=== PATIENT | female | born 1985 | race Caucasian/White ===

== ENCOUNTER → 2016-04-13 | Outpatient (CLI) | payer OTHER ==
[~2016-04-13] MED LIST: CLARITIN10 MG PO; COLACE 100MG C100 MG PO; FLONASE 0.05% N16 GM; K-SOL40 MEQ/15 PO; PROTONIX40 MG PO; TRILEPTAL600 MG PO; VALTREX500 MG PO; VIMPAT150 MG PO; VITAMIN D50000 UNIT PO; XALATAN2.5 ML OP; ZYRTEC10 MG PO
[2016-04-13 09:36] LABS: BUN/CREATININE RATIO 12 (0-10)
== END ==
LOC: LAB 08:30
PROVIDERS: Nurse Practitioner Primary Care
DX: E87.6 Hypokalemia (principal)
CPT/HCPCS: 36415; 80048

== ENCOUNTER → 2016-04-28 | Outpatient (CLI) | payer OTHER ==
[2016-04-28 11:35] LABS: HEMOGLOBIN 10.9 gm/dl (12.3-15.3); RED BLOOD COUNT 4.53 M/UL (4.00-5.10); WHITE BLOOD COUNT 14.8 K/UL (4.5-11.0)
[2016-04-28 11:45] LABS: BUN/CREATININE RATIO 28 (0-10)
== END ==
LOC: LAB 10:19
PROVIDERS: Nurse Practitioner Primary Care
DX: R05 Cough (principal); J40 Bronchitis, not specified as acute or chronic
CPT/HCPCS: 36415; 71010; 80053; 85025

== ENCOUNTER → 2016-05-07 | Outpatient (CLI) | payer OTHER ==
[2016-05-07 10:55] LABS: HEMOGLOBIN 9.9 gm/dl (12.3-15.3); RED BLOOD COUNT 4.08 M/UL (4.00-5.10)
== END ==
LOC: LAB 09:58
PROVIDERS: Nurse Practitioner Primary Care
DX: D64.9 Anemia, unspecified (principal)
CPT/HCPCS: 36415; 82607; 82728; 82746; 83540; 83550; 85025

== ENCOUNTER → 2016-06-10 | Outpatient (CLI) | payer OTHER ==
[2016-06-10 10:45] LABS: HEMOGLOBIN 12.4 gm/dl (12.3-15.3); RED BLOOD COUNT 4.77 M/UL (4.00-5.10); WHITE BLOOD COUNT 5.5 K/UL (4.5-11.0)
== END ==
LOC: LAB 10:20
PROVIDERS: Internal Medicine Hematology & Oncology
DX: D64.9 Anemia, unspecified (principal)
CPT/HCPCS: 36415; 85025

== ENCOUNTER → 2016-07-16 | Outpatient (CLI) | payer OTHER ==
[2016-07-16 10:14] LABS: HEMOGLOBIN 14.9 gm/dl (12.3-15.3); RED BLOOD COUNT 5.26 M/UL (4.00-5.10); WHITE BLOOD COUNT 6.5 K/UL (4.5-11.0)
[2016-07-16 10:32] LABS: BUN/CREATININE RATIO 13 (0-10)
== END ==
LOC: LAB 09:32
PROVIDERS: Nurse Practitioner Primary Care
DX: D50.9 Iron deficiency anemia, unspecified (principal); E87.6 Hypokalemia
CPT/HCPCS: 36415; 80053; 85025

== ENCOUNTER → 2016-07-29 | Outpatient (CLI) | payer OTHER ==
[2016-07-29 11:39] LABS: HEMOGLOBIN 13.5 gm/dl (12.3-15.3); RED BLOOD COUNT 4.67 M/UL (4.00-5.10); WHITE BLOOD COUNT 9.4 K/UL (4.5-11.0)
[2016-07-29 12:01] LABS: BUN/CREATININE RATIO 10 (0-10)
== END ==
LOC: LAB 11:16
PROVIDERS: Surgery
DX: G40.211 Localization-related (focal) (partial) symptomatic epilepsy and epileptic syndromes with complex partial seizures, intractable, with status epilepticus (principal)
CPT/HCPCS: 36415; 80048; 85027

== ENCOUNTER → 2020-02-12 | Day surgery (SDC) | payer OTHER ==
[~2020-02-12] MED LIST changes: +ALL DAY ALLERGY10 MG PO; +APTIOM600 MG PO; +ASTELIN SPRAY; +AUGMENTIN 875-1 EACH PEG; +AUGMENTIN 875-1 EACH PO; +AZELASTINE137 MCG/0.; +BETAMETHASONE; +CALMOSEPTINE OI71 GM TOP; +CALMOSEPTINE OI71 GM TP; +CEFUROXIME500 MG PO; +CEPHALEXIN500 M1 PO; +CHILDREN'S15 MG/1 M1 PO; +CLOBAZAM PO; +CLOBAZAM2.5 MG/1 M GT; +COLACE PO; +COLACE SOL100 MG/10 PO; +COSOPT EYE DROP10 ML EYEBOTH; +COSOPT OPTH SOL10 ML EYEBOTH; +COSOPT PF EYE1 EACH EYEBOTH; +DEBROX15 ML AU; +DEBROX15 ML EARBOTH; +DEPO-PROVE150 MG/11 IM; +DIASTAT 2.5 MG2.5 MG PR; +DOCU LIQUI50 MG/5 ML PO; +DOXYCYCLINE HY100 MG PO; +DULCOLAX10 MG PR; +EAR DROPS15 ML EARBOTH; +ENSURE ORIGINA237 ML PO; +FERROUS SU220 MG/5 M PO; +FERROUS SU300 MG/5 M PEG; +FERROUS SULFATE PO; +HYDROCORTISONE TP; +JEVITY 1.5 PEG; +K-DUR TAB 10 M10 MEQ PO; +KEFLEX SUS250 MG/5 M PO; +MEDROXYPRO150 MG/1 M IM; +METRO; +MIRALAX17 GM PO; +POTASSIUM20 MEQ/15 PO; +TAMIFLU75 MG PO; +TOPIRAMATE ER200 MG PO; +TOPIRAMATE200 MG PO; +TRIAMCINOLONE; +TROKENDI XR200 MG PO; +TYLENOL325 MG PEG; +VIMPAT PO; +VIMPAT10 MG/1 ML GT; +VITAMIN D21250 MCG PO; +VITAMIN D31250 MCG PO; +XALATAN2.5 ML EYEBOTH; +XALATAN2.5 ML OU; +ZOFRAN ODT 4 MG4 MG PO; +ZOFRAN4 MG PO; +ZYRTEC10 M3 PO; +[UNRECOGNIZED DRUG - OTHER]; +[UNRECOGNIZED DRUG - OTHER] PO
== END | disposition home or self-care (01) ==
LOC: OR 07:59
PROVIDERS: Internal Medicine Gastroenterology
PROC: 0DH63UZ Insertion of Feeding Device into Stomach, Percutaneous Approach (ICD-10-PCS; principal; 2020-02-12 10:15)
DX: K94.23 Gastrostomy malfunction (principal); R63.3 Feeding difficulties; F72 Severe intellectual disabilities; K21.00 Gastro-esophageal reflux disease with esophagitis, without bleeding; K22.10 Ulcer of esophagus without bleeding; H40.9 Unspecified glaucoma; E87.6 Hypokalemia; G40.909 Epilepsy, unspecified, not intractable, without status epilepticus; Z79.899 Other long term (current) drug therapy; Z20.828 Contact with and (suspected) exposure to other viral communicable diseases
CPT/HCPCS: 36415; 84703; J2704; J7040

== ENCOUNTER → 2020-04-02 | Outpatient (CLI) | payer OTHER ==
[2020-04-02 09:19] LABS: HEMOGLOBIN 14.3 gm/dl (12.3-15.3); RED BLOOD COUNT 4.47 M/UL (4.00-5.10); WHITE BLOOD COUNT 5.3 K/UL (4.5-11.0)
[2020-04-02 09:51] LABS: BUN/CREATININE RATIO 18 (0-10)
[2020-04-03 09:13] LABS: VITAMIN D, 25-HYDROXY 22.4 ng/mL (30.0-100.0)
== END ==
LOC: LAB 08:43
PROVIDERS: Nurse Practitioner Primary Care
DX: D50.9 Iron deficiency anemia, unspecified (principal); R63.6 Underweight; E55.9 Vitamin D deficiency, unspecified; E87.6 Hypokalemia; M81.0 Age-related osteoporosis without current pathological fracture; G40.909 Epilepsy, unspecified, not intractable, without status epilepticus
CPT/HCPCS: 36415; 80053; 82728; 83735; 84443; 85025; G0480

== ENCOUNTER 2020-05-09 21:08 | Emergency (ER) | payer OTHER ==
[~2020-05-09 21:08] MED LIST changes: -APTIOM600 MG PO; -AUGMENTIN 875-1 EACH PEG; -AUGMENTIN 875-1 EACH PO; -CALMOSEPTINE OI71 GM TOP; -CLOBAZAM2.5 MG/1 M GT; -COSOPT OPTH SOL10 ML EYEBOTH; -DOCU LIQUI50 MG/5 ML PO; -DOXYCYCLINE HY100 MG PO; -EAR DROPS15 ML EARBOTH; -FERROUS SU300 MG/5 M PEG; -JEVITY 1.5 PEG; -MEDROXYPRO150 MG/1 M IM; -TYLENOL325 MG PEG; -VIMPAT10 MG/1 ML GT; -VITAMIN D21250 MCG PO; -[UNRECOGNIZED DRUG - OTHER] PO
[2020-05-09 23:28] LABS: RED BLOOD COUNT 4.08 M/UL (4.00-5.10)
[2020-05-09 23:55] LABS: BUN/CREATININE RATIO 43 (0-10)
[2020-06-26] MEDS ORDERED: MIRALAX17 GM PO (09:16)
[2020-07-02] MEDS ORDERED: DEBROX15 ML EARBOTH (08:52)
[2020-07-02] MEDS ORDERED: VITAMIN D21250 MCG PO (09:00)
[2020-07-04] MEDS ORDERED: APTIOM600 MG PO (09:11)
== END 2020-05-10 12:05 | disposition other institution (70) ==
LOC: ER1 21:08
PROVIDERS: Emergency Medicine
DX: A41.9 Sepsis, unspecified organism (principal); R65.20 Severe sepsis without septic shock; J18.9 Pneumonia, unspecified organism; G40.901 Epilepsy, unspecified, not intractable, with status epilepticus; Z20.822 Contact with and (suspected) exposure to COVID-19
CPT/HCPCS: 0240U; 36415; 36600; 70450; 71045; 80053; 81001; 82803; 83605; 83690; 83735; 84703; 85025; 87040; 93005; 94760; 96365; 96366; 96368; 96375; 99285; J0456; J2060; J2543; J7030

== ENCOUNTER → 2020-06-05 | Outpatient (CLI) | payer OTHER ==
[~2020-06-05] MED LIST changes: +APTIOM600 MG PO; +AUGMENTIN 875-1 EACH PEG; +AUGMENTIN 875-1 EACH PO; +CALMOSEPTINE OI71 GM TOP; +CLOBAZAM2.5 MG/1 M GT; +COSOPT OPTH SOL10 ML EYEBOTH; +DOCU LIQUI50 MG/5 ML PO; +DOXYCYCLINE HY100 MG PO; +EAR DROPS15 ML EARBOTH; +FERROUS SU300 MG/5 M PEG; +JEVITY 1.5 PEG; +MEDROXYPRO150 MG/1 M IM; +TYLENOL325 MG PEG; +VIMPAT10 MG/1 ML GT; +VITAMIN D21250 MCG PO; +[UNRECOGNIZED DRUG - OTHER] PO
== END ==
LOC: RAD 09:20
DX: D50.9 Iron deficiency anemia, unspecified (principal); E55.9 Vitamin D deficiency, unspecified; K29.70 Gastritis, unspecified, without bleeding; R13.10 Dysphagia, unspecified; R63.6 Underweight; G80.9 Cerebral palsy, unspecified; E87.6 Hypokalemia
CPT/HCPCS: 71045

== ENCOUNTER → 2020-06-13 | Outpatient (CLI) | payer OTHER ==
[2020-06-13 10:04] LABS: HEMOGLOBIN 12.9 gm/dl (12.3-15.3); RED BLOOD COUNT 4.18 M/UL (4.00-5.10); WHITE BLOOD COUNT 15.3 K/UL (4.5-11.0)
[2020-06-13 10:27] LABS: BUN/CREATININE RATIO 49 (0-10)
== END ==
LOC: LAB 09:20
PROVIDERS: Nurse Practitioner Primary Care
DX: G80.9 Cerebral palsy, unspecified (principal)
CPT/HCPCS: 36415; 80053; 85025

== ENCOUNTER 2020-06-16 13:00 | Emergency (ER) | payer OTHER ==
[~2020-06-16 13:00] MED LIST changes: -APTIOM600 MG PO; -AUGMENTIN 875-1 EACH PEG; -AUGMENTIN 875-1 EACH PO; -CALMOSEPTINE OI71 GM TOP; -CLOBAZAM2.5 MG/1 M GT; -COSOPT OPTH SOL10 ML EYEBOTH; -DOCU LIQUI50 MG/5 ML PO; -DOXYCYCLINE HY100 MG PO; -EAR DROPS15 ML EARBOTH; -FERROUS SU300 MG/5 M PEG; -JEVITY 1.5 PEG; -MEDROXYPRO150 MG/1 M IM; -TYLENOL325 MG PEG; -VIMPAT10 MG/1 ML GT; -VITAMIN D21250 MCG PO; -[UNRECOGNIZED DRUG - OTHER] PO
[2020-06-16 16:07] LABS: HEMOGLOBIN 13.5 gm/dl (12.3-15.3); RED BLOOD COUNT 4.36 M/UL (4.00-5.10); WHITE BLOOD COUNT 13.7 K/UL (4.5-11.0)
[2020-06-16 16:19] LABS: BUN/CREATININE RATIO 36 (0-10)
[2020-06-26] MEDS ORDERED: MIRALAX17 GM PO (09:16)
[2020-07-02] MEDS ORDERED: DEBROX15 ML EARBOTH (08:52)
[2020-07-02] MEDS ORDERED: VITAMIN D21250 MCG PO (09:00)
[2020-07-04] MEDS ORDERED: APTIOM600 MG PO (09:11)
== END 2020-06-16 19:04 | disposition home or self-care (01) ==
LOC: ER1 13:00
PROVIDERS: Emergency Medicine
DX: L03.113 Cellulitis of right upper limb (principal); G40.909 Epilepsy, unspecified, not intractable, without status epilepticus
CPT/HCPCS: 71045; 80053; 81001; 85025; 99285; Q9967

== ENCOUNTER → 2020-07-02 | Day surgery (SDC) | payer OTHER ==
[~2020-07-02] VITALS: Ht 147.3 cm; Wt 40.8 kg
[~2020-07-02] MED LIST changes: +APTIOM600 MG PO; +AUGMENTIN 875-1 EACH PEG; +AUGMENTIN 875-1 EACH PO; +CALMOSEPTINE OI71 GM TOP; +CLOBAZAM2.5 MG/1 M GT; +COSOPT OPTH SOL10 ML EYEBOTH; +DOCU LIQUI50 MG/5 ML PO; +DOXYCYCLINE HY100 MG PO; +EAR DROPS15 ML EARBOTH; +FERROUS SU300 MG/5 M PEG; +JEVITY 1.5 PEG; +MEDROXYPRO150 MG/1 M IM; +TYLENOL325 MG PEG; +VIMPAT10 MG/1 ML GT; +VITAMIN D21250 MCG PO; +[UNRECOGNIZED DRUG - OTHER] PO
== END | disposition home or self-care (01) ==
LOC: OR 06-30 09:17
DX: K94.23 Gastrostomy malfunction (principal); G40.909 Epilepsy, unspecified, not intractable, without status epilepticus; F72 Severe intellectual disabilities; K21.9 Gastro-esophageal reflux disease without esophagitis; Z79.899 Other long term (current) drug therapy; Z20.822 Contact with and (suspected) exposure to COVID-19
CPT/HCPCS: 36415; 84703; J2704; J7040; U0002

== ENCOUNTER 2020-07-17 14:03 | Inpatient (IN) | payer OTHER ==
[~2020-07-17] VITALS: Ht 149.9 cm; Wt 38.1 kg
[~2020-07-17 14:03] MED LIST changes: -AUGMENTIN 875-1 EACH PEG; -AUGMENTIN 875-1 EACH PO; -CALMOSEPTINE OI71 GM TOP; -CLOBAZAM2.5 MG/1 M GT; -COSOPT OPTH SOL10 ML EYEBOTH; -DOCU LIQUI50 MG/5 ML PO; -DOXYCYCLINE HY100 MG PO; -EAR DROPS15 ML EARBOTH; -FERROUS SU300 MG/5 M PEG; -JEVITY 1.5 PEG; -MEDROXYPRO150 MG/1 M IM; -TYLENOL325 MG PEG; -VIMPAT10 MG/1 ML GT; -[UNRECOGNIZED DRUG - OTHER] PO
[2020-07-17 15:42] LABS: HEMOGLOBIN 12.2 gm/dl (12.3-15.3); RED BLOOD COUNT 4.06 M/UL (4.00-5.10); WHITE BLOOD COUNT 18.4 K/UL (4.5-11.0)
[2020-07-17 16:02] LABS: BUN/CREATININE RATIO 35 (0-10)
[2020-07-18 08:59] LABS: RED BLOOD COUNT 4.04 M/UL (4.00-5.10)
[2020-07-18 09:05] LABS: WHITE BLOOD COUNT 11.1 K/UL (4.5-11.0)
[2020-07-18] MEDS ORDERED: CALMOSEPTINE OI71 GM TP (09:14)
[2020-07-18] MEDS ORDERED: JEVITY 1.5 PEG (09:20)
[2020-07-18 09:26] LABS: BUN/CREATININE RATIO 26 (0-10)
[2020-07-18] MEDS ORDERED: AZELASTINE137 MCG/0. (09:35)
[2020-07-18] MEDS ORDERED: COSOPT OPTH SOL10 ML EYEBOTH ×2 (09:35→10:11)
[2020-07-18] MEDS ORDERED: FERROUS SU300 MG/5 M PEG (09:37)
[2020-07-18] MEDS ORDERED: DOCU LIQUI50 MG/5 ML PO (09:40)
[2020-07-18] MEDS ORDERED: EAR DROPS15 ML EARBOTH (09:52)
[2020-07-18] MEDS ORDERED: VIMPAT10 MG/1 ML GT (09:53)
[2020-07-18] MEDS ORDERED: CLOBAZAM2.5 MG/1 M GT (09:58)
[2020-07-18] MEDS ORDERED: MEDROXYPRO150 MG/1 M IM (09:59)
[2020-07-18] MEDS ORDERED: TYLENOL325 MG PEG (10:14)
[2020-07-18] MEDS ORDERED: CALMOSEPTINE OI71 GM TOP (10:57)
[2020-07-18] MEDS ORDERED: [UNRECOGNIZED DRUG - OTHER] PO (20:32)
[2020-07-19 04:23] LABS: HEMOGLOBIN 10.9 gm/dl (12.3-15.3); RED BLOOD COUNT 3.74 M/UL (4.00-5.10)
[2020-07-19 04:24] LABS: WHITE BLOOD COUNT 6.5 K/UL (4.5-11.0)
[2020-07-19 04:46] LABS: BUN/CREATININE RATIO 21 (0-10)
--- NOTE | 2020-07-19 17:05 | NUR ---
NOTIFIED DR. WASSERMAN OF [facility] PER TELEMETRY. NO NEW ORDERS AT THIS TIME.
[2020-07-20 07:01] LABS: HEMOGLOBIN 11.2 gm/dl (12.3-15.3); RED BLOOD COUNT 3.82 M/UL (4.00-5.10); WHITE BLOOD COUNT 7.2 K/UL (4.5-11.0)
[2020-07-20 07:20] LABS: BUN/CREATININE RATIO 18 (0-10)
[2020-07-21 04:54] LABS: HEMOGLOBIN 11.3 gm/dl (12.3-15.3); RED BLOOD COUNT 3.91 M/UL (4.00-5.10); WHITE BLOOD COUNT 5.9 K/UL (4.5-11.0)
[2020-07-21 05:05] LABS: BUN/CREATININE RATIO 19 (0-10)
[2020-07-22 03:24] LABS: HEMOGLOBIN 12.3 gm/dl (12.3-15.3); RED BLOOD COUNT 4.27 M/UL (4.00-5.10); WHITE BLOOD COUNT 7.6 K/UL (4.5-11.0)
[2020-07-22 04:49] LABS: BUN/CREATININE RATIO 16 (0-10)
[2020-07-23 02:57] LABS: BUN/CREATININE RATIO 9 (0-10)
[2020-07-24 04:41] LABS: RED BLOOD COUNT 4.06 M/UL (4.00-5.10); WHITE BLOOD COUNT 7.4 K/UL (4.5-11.0)
[2020-07-24 05:02] LABS: BUN/CREATININE RATIO 14 (0-10)
--- NOTE | 2020-07-24 12:47 | NUR ---
PATIENT DIFFICULT LAB STICK (LAB TRIED MULTIPLE TIMES YESTERDAY BEFORE BECOMING SUCSESSFUL) . K+ 3.4. REPLACED WITH 40 meq AND PATIENT IS GETTING IV FLUIDS WITH k+. UNESSESARY RE DRAW. MERARY NOTIFY PROVIDER.
[2020-07-25 03:15] LABS: RED BLOOD COUNT 4.08 M/UL (4.00-5.10); WHITE BLOOD COUNT 7.3 K/UL (4.5-11.0)
[2020-07-25 03:32] LABS: BUN/CREATININE RATIO 22 (0-10)
[2020-07-26 05:29] LABS: BUN/CREATININE RATIO 22 (0-10)
[2020-07-27 05:51] LABS: HEMOGLOBIN 11.6 gm/dl (12.3-15.3); RED BLOOD COUNT 3.95 M/UL (4.00-5.10); WHITE BLOOD COUNT 6.4 K/UL (4.5-11.0)
[2020-07-27 06:12] LABS: BUN/CREATININE RATIO 19 (0-10)
[2020-07-28 03:31] LABS: RED BLOOD COUNT 4.12 M/UL (4.00-5.10)
[2020-07-28 03:59] LABS: BUN/CREATININE RATIO 20 (0-10)
--- NOTE | 2020-07-29 09:26 | NUR ---
0900: RN TOOK HYDROCODONE FROM [facility] TO ADMINISTER TO PATIENT FOR PAIN, WASTED APPROPRIATE AMOUNT WITH ELIZABETH GUO. PATIENT DOES NOT APPEAR TO BE IN ANY PAIN NOW, PATIENT IS NON-VERBAL. DOSE NOT GIVEN, WASTED REST OF MEDICATION WITH ELIZABETH RED
[2020-07-29 11:51] LABS: HEMOGLOBIN 12.2 gm/dl (12.3-15.3); RED BLOOD COUNT 4.1 M/UL (4.00-5.10); WHITE BLOOD COUNT 9.4 K/UL (4.5-11.0)
[2020-07-29 12:13] LABS: BUN/CREATININE RATIO 29 (0-10)
[2020-07-30 03:42] LABS: BUN/CREATININE RATIO 31 (0-10)
[2020-07-30 08:45] LABS: RED BLOOD COUNT 4.09 M/UL (4.00-5.10); WHITE BLOOD COUNT 7.8 K/UL (4.5-11.0)
[2020-07-31 05:43] LABS: HEMOGLOBIN 11.1 gm/dl (12.3-15.3); RED BLOOD COUNT 3.79 M/UL (4.00-5.10); WHITE BLOOD COUNT 6.4 K/UL (4.5-11.0)
[2020-07-31 06:10] LABS: BUN/CREATININE RATIO 32 (0-10)
--- NOTE | 2020-07-31 13:50 | NUR ---
WOUND CARE PERFORMED PER PHYSICIAN'S ORDER TO RIGHT FOOT. PATIENT TOLERATED WELL.
[2020-08-01 05:57] LABS: HEMOGLOBIN 10.6 gm/dl (12.3-15.3); RED BLOOD COUNT 3.68 M/UL (4.00-5.10); WHITE BLOOD COUNT 11.6 K/UL (4.5-11.0)
[2020-08-02 04:39] LABS: HEMOGLOBIN 11.1 gm/dl (12.3-15.3); RED BLOOD COUNT 3.83 M/UL (4.00-5.10)
[2020-08-02 04:40] LABS: WHITE BLOOD COUNT 6.5 K/UL (4.5-11.0)
[2020-08-02 04:57] LABS: BUN/CREATININE RATIO 29 (0-10)
--- NOTE | 2020-08-02 15:55 | NUR ---
PATIENT'S DRESSING TO FOOT CHANGED. GRANULATION TISSUE, HEALTHY APPEARANCE NOTED. PATIENT TOLERATED WELL.
[2020-08-03 03:13] LABS: HEMOGLOBIN 10.6 gm/dl (12.3-15.3); RED BLOOD COUNT 3.61 M/UL (4.00-5.10); WHITE BLOOD COUNT 7.2 K/UL (4.5-11.0)
[2020-08-03 03:32] LABS: BUN/CREATININE RATIO 28 (0-10)
[2020-08-04 03:04] LABS: HEMOGLOBIN 11.3 gm/dl (12.3-15.3); RED BLOOD COUNT 3.87 M/UL (4.00-5.10); WHITE BLOOD COUNT 8.6 K/UL (4.5-11.0)
[2020-08-04 03:21] LABS: BUN/CREATININE RATIO 31 (0-10)
[2020-08-04] MEDS ORDERED: AUGMENTIN 875-1 EACH PEG (09:57)
[2020-08-04] MEDS ORDERED: DOXYCYCLINE HY100 MG PO (09:58)
[2020-08-05 05:15] LABS: HEMOGLOBIN 10.4 gm/dl (12.3-15.3); RED BLOOD COUNT 3.57 M/UL (4.00-5.10); WHITE BLOOD COUNT 9.3 K/UL (4.5-11.0)
[2020-08-05 05:31] LABS: BUN/CREATININE RATIO 33 (0-10)
--- NOTE | 2020-08-05 14:33 | NUR ---
received report from picc line nursekaelyn that patient has been evaluated for picc line placement previously and was not placed d/t contractions on her upper arms, notified dr. araujo and was informed to get consent from the caregiver.
--- NOTE | 2020-08-05 17:58 | NUR ---
unable to give invanz due this morning r/t no iv access. patient iv clotted. attempted to start iv access with no success. central line started
[2020-08-06 06:13] LABS: HEMOGLOBIN 11.6 gm/dl (12.3-15.3); WHITE BLOOD COUNT 10.4 K/UL (4.5-11.0)
[2020-08-06 06:14] LABS: RED BLOOD COUNT 3.95 M/UL (4.00-5.10)
[2020-08-06 06:47] LABS: BUN/CREATININE RATIO 39 (0-10)
[2020-08-07] MEDS ORDERED: AUGMENTIN 875-1 EACH PO (10:22)
--- NOTE | 2020-08-07 15:25 | NUR ---
PATIENT NOTED TO DESAT TO 86% ON ROOM AIR PRIOR TO DISCHARGE. MADE AWARE AND GAVE ORDERS FOR O2 TO BE SET UP AT HOME FOR PATIENT.
[2020-08-11 03:53] LABS: HEMOGLOBIN 11.1 gm/dl (12.3-15.3); RED BLOOD COUNT 3.84 M/UL (4.00-5.10); WHITE BLOOD COUNT 6.4 K/UL (4.5-11.0)
[2020-08-11 04:10] LABS: BUN/CREATININE RATIO 33 (0-10)
[2020-08-13 07:05] LABS: BUN/CREATININE RATIO 18 (0-10)
[2020-08-14 05:00] LABS: HEMOGLOBIN 10.4 gm/dl (12.3-15.3); RED BLOOD COUNT 3.59 M/UL (4.00-5.10); WHITE BLOOD COUNT 8.4 K/UL (4.5-11.0)
[2020-08-14 06:07] LABS: BUN/CREATININE RATIO 20 (0-10)
[2020-08-15 04:42] LABS: BUN/CREATININE RATIO 20 (0-10)
[2020-08-16 05:04] LABS: BUN/CREATININE RATIO 43 (0-10)
[2020-08-17 05:52] LABS: HEMOGLOBIN 11.4 gm/dl (12.3-15.3); RED BLOOD COUNT 3.92 M/UL (4.00-5.10); WHITE BLOOD COUNT 7.4 K/UL (4.5-11.0)
[2020-08-17 06:12] LABS: BUN/CREATININE RATIO 54 (0-10)
[2020-08-18 04:03] LABS: BUN/CREATININE RATIO 35 (0-10)
[2020-08-19 06:18] LABS: HEMOGLOBIN 11.2 gm/dl (12.3-15.3); RED BLOOD COUNT 3.87 M/UL (4.00-5.10)
[2020-08-19 06:23] LABS: WHITE BLOOD COUNT 9.8 K/UL (4.5-11.0)
[2020-08-19 06:42] LABS: BUN/CREATININE RATIO 29 (0-10)
[2020-08-20 06:18] LABS: BUN/CREATININE RATIO 42 (0-10)
[2020-08-20 07:07] LABS: HEMOGLOBIN 10.9 gm/dl (12.3-15.3); RED BLOOD COUNT 3.75 M/UL (4.00-5.10); WHITE BLOOD COUNT 9.6 K/UL (4.5-11.0)
[2020-08-21 10:47] LABS: HEMOGLOBIN 12.9 gm/dl (12.3-15.3); RED BLOOD COUNT 4.42 M/UL (4.00-5.10); WHITE BLOOD COUNT 6.2 K/UL (4.5-11.0)
[2020-08-21 11:01] LABS: BUN/CREATININE RATIO 25 (0-10)
[2020-08-22 09:56] LABS: HEMOGLOBIN 11.8 gm/dl (12.3-15.3); WHITE BLOOD COUNT 7.7 K/UL (4.5-11.0)
[2020-08-22 10:25] LABS: BUN/CREATININE RATIO 24 (0-10)
[2020-08-23 09:42] LABS: HEMOGLOBIN 11.4 gm/dl (12.3-15.3); RED BLOOD COUNT 3.91 M/UL (4.00-5.10); WHITE BLOOD COUNT 6.5 K/UL (4.5-11.0)
[2020-08-23 10:04] LABS: BUN/CREATININE RATIO 44 (0-10)
[2020-08-24 10:10] LABS: HEMOGLOBIN 12.3 gm/dl (12.3-15.3); RED BLOOD COUNT 4.18 M/UL (4.00-5.10); WHITE BLOOD COUNT 7.4 K/UL (4.5-11.0)
[2020-08-24 10:32] LABS: BUN/CREATININE RATIO 68 (0-10)
[2020-08-26 06:04] LABS: HEMOGLOBIN 11.3 gm/dl (12.3-15.3); RED BLOOD COUNT 3.8 M/UL (4.00-5.10)
[2020-08-26 06:27] LABS: BUN/CREATININE RATIO 55 (0-10)
--- NOTE | 2020-08-26 16:02 | NUR ---
ATTEMPTED TO CALL [facility] REGARDING CONSENT FOR PATIENT'S SURGERY TOMORROW. [facility] DIDN'T ANSWER, RN LEFT VOICEMAIL TO RETURN CALL TO FACILITY AT EARLIEST CONVENIENCE.
[2020-08-28 06:25] LABS: HEMOGLOBIN 12.7 gm/dl (12.3-15.3); WHITE BLOOD COUNT 7.3 K/UL (4.5-11.0)
[2020-08-28 06:27] LABS: RED BLOOD COUNT 4.24 M/UL (4.00-5.10)
[2020-08-28 06:39] LABS: BUN/CREATININE RATIO 29 (0-10)
[2020-08-29 05:07] LABS: HEMOGLOBIN 10.1 gm/dl (12.3-15.3); RED BLOOD COUNT 3.4 M/UL (4.00-5.10); WHITE BLOOD COUNT 4.5 K/UL (4.5-11.0)
[2020-08-29 05:17] LABS: BUN/CREATININE RATIO 50 (0-10)
[2020-08-30 07:05] LABS: BUN/CREATININE RATIO 16 (0-10)
[2020-08-30 07:48] LABS: HEMOGLOBIN 10.6 gm/dl (12.3-15.3); RED BLOOD COUNT 3.68 M/UL (4.00-5.10); WHITE BLOOD COUNT 5.5 K/UL (4.5-11.0)
[2020-08-31 06:32] LABS: BUN/CREATININE RATIO 9 (0-10)
[2020-09-01 05:01] LABS: BUN/CREATININE RATIO 19 (0-10)
--- NOTE | 2020-09-01 13:49 | NUR ---
TO CONTACT [facility] OF [facility] FOR PROCEDURES AFTER HRS CALL
--- NOTE | 2020-09-01 15:11 | NUR ---
At approximately 0830, while rounding, primary nurse was notified of a dislodged portion of the patient's j-tube while she was being bathed. Upon inspection it was noted that the entirety of the blue tubing had left the patient's peg tube. Dr. Mahan was notified and he later attempted to reposition the tube in the intended location at the bedside. X-ray was ordered of the abdomen and it revealed that the tube had coiled upon itself in the stomach, rather than the intestine. Dr. Mahan was notified, and he then ordered for the procedure to replace the tube be made for the following day (09/02/20). Consents were obtained from the guardianship, Shelby Moncada, to proceed as scheduled.
--- NOTE | 2020-09-01 22:00 | NUR ---
UNABLE TO GIVE MEDICATIONS AND OR TUBE FEEDING THROUGH J-TUBE DUE TO INCORRECT POSITION.
[2020-09-03 06:25] LABS: HEMOGLOBIN 12.4 gm/dl (12.3-15.3); RED BLOOD COUNT 4.05 M/UL (4.00-5.10); WHITE BLOOD COUNT 6.4 K/UL (4.5-11.0)
[2020-09-03 07:00] LABS: BUN/CREATININE RATIO 27 (0-10)
[2020-09-04 02:50] LABS: HEMOGLOBIN 12.8 gm/dl (12.3-15.3); RED BLOOD COUNT 4.26 M/UL (4.00-5.10)
[2020-09-04 02:57] LABS: WHITE BLOOD COUNT 8.7 K/UL (4.5-11.0)
[2020-09-04 03:02] LABS: BUN/CREATININE RATIO 26 (0-10)
--- NOTE | 2020-09-04 03:16 | NUR ---
SPOKE TO PHARMACY REGARDING IODOSORB FOR BID DRESSING CHANGE AND WE DO NOT CARRY THIS MEDICATION.
[2020-09-05 04:50] LABS: HEMOGLOBIN 12.3 gm/dl (12.3-15.3); RED BLOOD COUNT 4.08 M/UL (4.00-5.10); WHITE BLOOD COUNT 8.1 K/UL (4.5-11.0)
[2020-09-05 05:08] LABS: BUN/CREATININE RATIO 67 (0-10)
== END 2020-09-05 18:52 | DRG 853 ==
LOC: ER1 14:03 → MED SURG 4 18:50 → M/S 18:50 → CDU 18:50 → M/S 07-18 15:47 → CDU 07-31 15:01 → MED SURG 4 08-08 17:48
PROVIDERS: Internal Medicine; Physician Assistant; Podiatrist Foot & Ankle Surgery; ADMIT Internal Medicine
PROC: 0HRMXK3 Replacement of Right Foot Skin with Nonautologous Tissue Substitute, Full Thickness, External Approach (ICD-10-PCS; 2020-07-18)
PROC: 0JBQ0ZZ Excision of Right Foot Subcutaneous Tissue and Fascia, Open Approach (ICD-10-PCS; principal; 2020-07-18 14:35)
PROC: 0D20XUZ Change Feeding Device in Upper Intestinal Tract, External Approach (ICD-10-PCS; 2020-07-22)
PROC: 02HV33Z Insertion of Infusion Device into Superior Vena Cava, Percutaneous Approach (ICD-10-PCS; 2020-08-05)
PROC: B548ZZA Ultrasonography of Superior Vena Cava, Guidance (ICD-10-PCS; 2020-08-05)
PROC: 0DH683Z Insertion of Infusion Device into Stomach, Via Natural or Artificial Opening Endoscopic (ICD-10-PCS; 2020-08-27)
DX: A41.02 Sepsis due to Methicillin resistant Staphylococcus aureus (principal); J69.0 Pneumonitis due to inhalation of food and vomit; J96.01 Acute respiratory failure with hypoxia; R53.2 Functional quadriplegia; G92 Toxic encephalopathy; J15.212 Pneumonia due to Methicillin resistant Staphylococcus aureus; K51.90 Ulcerative colitis, unspecified, without complications; K94.23 Gastrostomy malfunction; I96 Gangrene, not elsewhere classified; L97.518 Non-pressure chronic ulcer of other part of right foot with other specified severity; Z68.1 Body mass index [BMI] 19.9 or less, adult; E44.0 Moderate protein-calorie malnutrition; L03.031 Cellulitis of right toe; Z20.822 Contact with and (suspected) exposure to COVID-19; E86.0 Dehydration; Q03.1 Atresia of foramina of Magendie and Luschka; G40.909 Epilepsy, unspecified, not intractable, without status epilepticus; R32 Unspecified urinary incontinence; F79 Unspecified intellectual disabilities; R15.9 Full incontinence of feces; H40.9 Unspecified glaucoma; J30.2 Other seasonal allergic rhinitis; K44.9 Diaphragmatic hernia without obstruction or gangrene; K21.9 Gastro-esophageal reflux disease without esophagitis; Y83.9 Surgical procedure, unspecified as the cause of abnormal reaction of the patient, or of later complication, without mention of misadventure at the time of the procedure; K59.00 Constipation, unspecified; E87.6 Hypokalemia; T42.4X5A Adverse effect of benzodiazepines, initial encounter; Z96.82 Presence of neurostimulator; Z98.890 Other specified postprocedural states; Z79.82 Long term (current) use of aspirin; Z79.899 Other long term (current) drug therapy
CPT/HCPCS: 36415; 36600; 51701; 71045; 73630; 73700; 74018; 80048; 80053; 80202; 81001; 82140; 82550; 82553; 82803; 83036; 83605; 83735; 83874; 84100; 84132; 84439; 84443; 84484; 84703; 85025; 85027; 85652; 87040; 87070; 87077; 87081; 87086; 87186; 87205; 93005; 93925; 94760; 96365; 99285; A6212; C1751; G0378; J1335; J1650; J1953; J2001; J2060; J2270; J2543; J2704; J3370; J3480; J7030; J7040; J7050; J7070; J7120; Q4133; U0002